=== PATIENT | male | born 1965 | race Caucasian/White ===

== ENCOUNTER 2017-08-19 09:55 | Day surgery (SDC) | payer BC ==
[~2017-08-19] VITALS: Ht 172.7 cm; Wt 104.0 kg
[~2017-08-19 09:55] MED LIST: ASPIRIN81 M2 PO; HUMALOG100 UNIT/2 SC; LEVEMIR FL100 UNIT/1 SC; LIPITOR80 MG PO; LISINOPRIL40 MG PO; VITAMIN D31000 UNIT PO
[2017-08-19] MEDS ORDERED: ASPIRIN81 M2 PO (10:35)
== END 2017-08-19 16:20 | disposition home or self-care (01) ==
LOC: CATH 09:55
PROVIDERS: Internal Medicine Cardiovascular Disease
DX: I25.10 Atherosclerotic heart disease of native coronary artery without angina pectoris (principal); E11.9 Type 2 diabetes mellitus without complications; I10 Essential (primary) hypertension; E78.5 Hyperlipidemia, unspecified; E66.01 Morbid (severe) obesity due to excess calories; Z68.35 Body mass index [BMI] 35.0-35.9, adult; Z79.82 Long term (current) use of aspirin; Z79.4 Long term (current) use of insulin; Z72.0 Tobacco use; Z82.49 Family history of ischemic heart disease and other diseases of the circulatory system
CPT/HCPCS: 82948; C1769; C1887; J1200; J1644; J1815; J2250; J7040